=== PATIENT | male | born 1965 | race Caucasian/White ===

== ENCOUNTER 2016-09-12 14:29 | Emergency (ER) | payer OTHER ==
[~2016-09-12] VITALS: Ht 175.3 cm; Wt 90.0 kg
[~2016-09-12 14:29] MED LIST: PRED20 PO; ULTR50TA PO
[2016-09-12 14:33] VITALS: BP 143/76; PULSE 80; RESP 16; TEMP 97.9; O2SAT 98
[2016-09-12] MEDS ORDERED: IBUPROFEN 800 MG TAB PO ONE (15:30)
--- NOTE | 2016-09-12 15:31 | PD ---
HPI Chief Complaint: Skin Problem Time Seen by Provider: 15:28 Travel History International Travel<30 days: No Contact w/Intl Traveler<30days: No Traveled to known affect area: No History of Present Illness HPI 51-year-old male presents to the emergency Department with complaint of a piece of a metal wire brush in his right forearm that broke off and penetrated his arm today. He reports being up-to-date on his tetanus vaccination. Denies paresthesias, loss of sensation, decreased range of motion, decreased strength to the affected extremity. Has not taken any medications or tried any treatments to alleviate symptoms. Did go to urgent care prior to here and said he needed to go to the ER. No known allergies. No other modifying factors or associated signs and symptoms. [facility] Social History Alcohol Use: Yes Tobacco Use: No Substance Use: No Allergies-Medications (Allergen,Severity, Reaction): Coded Allergies: No Known Allergies (Unverified , 09/19/15) Reported Meds & Prescriptions Reported Meds & Active Scripts Active Ibuprofen 800 Mg Tab 800 Mg PO Q6HR PRN Keflex (Cephalexin) 500 Mg Cap 500 Mg PO Q8H 7 Days Review of Systems Except as stated in HPI: all other systems reviewed are Neg Physical Exam Narrative GENERAL: Well-nourished, well-developed male patient, in no acute distress SKIN: Warm and dry. Posterior aspect of distal right forearm with pinpoint puncture wound noted; area is tender to palpation and without erythema, edema, drainage; palpable foreign body at the skin surface. Right upper extremity is supple and non-tense with 2+ radial pulse and sensory intact. HEAD: Atraumatic. Normocephalic. EYES: Pupils equal and round. No scleral icterus. No injection or drainage. ENT: Mucosa pink and moist. Airway patent. NECK: Trachea midline. CARDIOVASCULAR: Regular rate. RESPIRATORY: No accessory muscle use. GASTROINTESTINAL: Rounded. MUSCULOSKELETAL: No obvious deformities. No clubbing. No cyanosis. No edema. NEUROLOGICAL: Awake and alert. Oriented 3. No obvious cranial nerve deficits. Motor grossly within normal limits. Normal speech. PSYCHIATRIC: Appropriate mood and affect; insight and judgment normal. Data Data Last Documented VS Vital Signs Date Time Temp Pulse Resp B/P Pulse Ox O2 Delivery O2 Flow Rate FiO2 09/12/16 14:33 97.9 80 16 143/76 98 Orders Forearm (2vws) (09/12/16 15:18) Ibuprofen (Motrin) (09/12/16 15:30) Lidocai-Epi 1%-1:100,000 Inj (Xylocaine- (09/12/16 16:30) MDM Medical Decision Making Medical Screen Exam Complete: Yes Emergency Medical Condition: Yes Medical Record Reviewed: Yes Differential Diagnosis Soft tissue foreign body, puncture wound, medical clearance Narrative Course 51-year-old male with suspected foreign body to the right forearm. Up-to-date on tetanus vaccination. Ibuprofen ordered. Right forearm x-ray ordered. 162: Right forearm x-ray concludes Radiopaque wire identified in the distal right forearm. 1720: Foreign body is palpable at the surface and I attempted to remove it without success. See my procedure note for attempt at removal. The patient was complaining of too much pain during the procedure and said he couldn't tolerate it, so the procedure was stopped. 1726: Call to Dr. Marrero, hand surgeon and he recommended for the patient to follow up with him in his office by Sunday. Keflex and ibuprofen prescribed for home. Patient verbalizes understanding and agreement with treatment plan. Patient is medically cleared and stable for discharge. Discussed reasons to return to the emergency department. Instructed patient to follow up with primary care provider. Patient agrees with treatment plan. The patients vital signs are stable and the patient is stable for outpatient follow-up and treatment. Patient discharged home, stable and in no acute distress. Procedures Procedure Narrative Attempted foreign body removal: The area of the foreign body was prepped with Betadine and sterilely draped. A small, less than 0.5 cm incision was made to the area of the puncture wound of the right forearm. Attempted to remove foreign body without success. Patient did not tolerate the procedure well, so the procedure was stopped. Diagnosis Primary Impression: Foreign body in soft tissue Referrals: Mick Marrero III, MD Primary Care Physician Patient Instructions: General Instructions, Soft Tissue Foreign Body (ED) Additional Instructions: Keep area clean and dry Limit [-] activity to decrease risk of sutures coming undone done; use sling for support and to decrease activity Ibuprofen every 6 hours as directed and as needed for pain Ice pack to area as needed to decrease pain Return to the emergency department in 10 days for suture removal Follow up with primary care provider within 2-4 days Return to the emergency department immediately with worsening of symptoms Med/Other Pt SpecificInfo: Prescription(s) given Scripts Ibuprofen 800 Mg [id number] Mg PO Q6HR PRN (PAIN) #30 TAB Ref 0 Prov:Ifeoma Christianson 09/12/16 Cephalexin (Keflex)500 Mg Tev450 Mg PO Q8H 7 Days Ref 0 Prov:Ifeoma Christianson 09/12/16 Disposition: 01 DISCHARGE HOME Condition: Stable Ifeoma Christianson Sep 12, 2016 15:31
--- NOTE | 2016-09-12 15:48 | RADRPT ---
EXAM DATE/TIME: 09/12/2016 15:32 [facility] COMPARISON: No previous studies available for comparison. INDICATIONS : Evaluate for foreign body in right forearm, small piece of wire from a wire brush broke off in arm to day MEDICAL HISTORY : None. SURGICAL HISTORY : None. ENCOUNTER: Initial ACUITY: 1 day PAIN SCORE: 10/10 LOCATION: Right forearm FINDINGS: Two view examination of the right forearm demonstrates a small radiopaque wire in the dorsal soft tis sues of the distal forearm. Bony structures are intact. CONCLUSION: Radiopaque wire identified in the distal right forearm Db Rizzo MD on September 12, 2016 at 15:45 Board Certified Radiologist. This report was verified electronically.
[2016-09-12] MEDS ORDERED: LIDOCAINE 1%/EPINEPHrine 1:100,000 SOLN 20 ML VIAL INFIL ONE (16:30)
[2016-09-12] MEDS ORDERED: CEPH-460 PO (16:30)
[2016-09-12] MEDS ORDERED: IBUP800T23 PO (17:32)
== END 2016-09-12 17:47 | disposition home or self-care (01) ==
LOC: NEPB 14:29
DX: S51.841A Puncture wound with foreign body of right forearm, initial encounter (principal); W45.8XXA Other foreign body or object entering through skin, initial encounter
CPT/HCPCS: 10120; 73090